=== PATIENT | female | born 1965 | race Caucasian/White ===

== ENCOUNTER 2017-06-24 09:48 | Emergency (ER) | payer MEDICAID ==
[~2017-06-24] VITALS: Ht 152.4 cm; Wt 48.0 kg
[~2017-06-24 09:48] MED LIST: ABAC1TAB7 PO; CLON1TAB23 PO; THIO25TA PO; [UNRECOGNIZED DRUG - OTHER] PO
[2017-06-24 09:52] VITALS: BP 101/66
[2017-06-24] MEDS ORDERED: DOLU50TA PO (10:07)
[2017-06-24] MEDS ORDERED: ATOR-2 PO (10:07)
[2017-06-24] MEDS ORDERED: EMTR1TAB8 PO (10:07)
[2017-06-24] MEDS ORDERED: OLAN15TA9 PO (10:07)
[2017-06-24] MEDS ORDERED: ALBU6.7H INH (10:07)
[2017-06-24] MEDS ORDERED: TRAZ100T15 PO (10:07)
[2017-06-24] MEDS ORDERED: LORA0.5T PO ×2 (10:07)
[2017-06-24] MEDS ORDERED: DIPH,PERTUSS(ACELL),TET VAC/PF 0.5 ML IM-VACC ONE ×2 (10:30)
[2017-06-24] MEDS ORDERED: BACITRACIN ZINC OINT 500U/GM, 0.9 GM ONE (10:30)
== END 2017-06-24 10:46 | disposition home or self-care (01) ==
LOC: ED 10:30
DX: S60.410A Abrasion of right index finger, initial encounter (principal); S60.411A Abrasion of left index finger, initial encounter; X58.XXXA Exposure to other specified factors, initial encounter; Y93.89 Activity, other specified; Y92.89 Other specified places as the place of occurrence of the external cause; Y99.8 Other external cause status
CPT/HCPCS: 90471; 90715; 99283